=== PATIENT | male | born 1995 | race Caucasian/White ===

== ENCOUNTER 2020-02-13 13:11 | Emergency (ER) | payer OTHER ==
[2020-02-13] MEDS ORDERED: ASPIRIN 81 MG TABLET, CHEWABLE PO ONE (13:38)
[2020-02-13] MEDS ORDERED: LORAZEPAM 1 MG TABLET PO ONE (13:38)
--- NOTE | 2020-02-13 13:40 | ER Document Report ---
ED Medical Screen (RME) - General Chief Complaint: Chest Pain Stated Complaint: CHEST PAIN, LEFT ARM PAIN Time Seen by Provider: 02/13/20 13:37 Notes: HPI: 25-year-old otherwise healthy male presenting to the emergency department complaining of sudden onset of left chest pain with radiation of the discomfort in the left shoulder and down the upper left arm. Does not change with position or movement. Patient states he was drinking alcohol last night but does not do drugs. Patient states he did dip tobacco this morning. Patient was at [employer] looking for a new door when he had onset of the symptoms. States there is a history of anxiety issues in the family but he has never been diagnosed with anxiety problems. No shortness of breath. No fever. No recent illness. States he had a checkup at his PCP over a month ago but it was all normal. I have greeted and performed a rapid initial assessment of this patient. A comprehensive ED assessment and evaluation of the patient, analysis of test results and completion of the medical decision making process will be conducted by additional ED providers PHYSICAL EXAMINATION: Mildly anxious. No reproducible pain on palpation of the chest wall. Lung sounds are clear to auscultation, regular rate and rhythm. EKG normal sinus rhythm without ectopy I have greeted and performed a rapid initial assessment of this patient. A comprehensive ED assessment and evaluation of the patient, analysis of test results and completion of medical decision making process will be conducted by an additional ED providers. - Related Data Allergies/Adverse Reactions: amoxicillin Allergy (Verified 02/13/20 13:33) Penicillins Allergy (Verified 02/13/20 13:33) Past Medical History - Social History Chew tobacco use (# tins/day): Yes Frequency of alcohol use: Social Drug Abuse: None Physical Exam - Vital signs Vitals: Temp Pulse Resp BP Pulse Ox 98.7 F 92 16 173/87 H 100 02/13/20 13:15 02/13/20 13:15 02/13/20 13:15 02/13/20 13:15 02/13/20 13:15 Course - Vital Signs Vital signs: Temp Pulse Resp BP Pulse Ox 98.7 F 92 16 173/87 H 100 02/13/20 13:15 02/13/20 13:15 02/13/20 13:15 02/13/20 13:15 02/13/20 13:15
[2020-02-13 13:59] LABS: ABSOLUTE EOSINOPHILS # (AUTO) 0.4 10^3/uL (0.0-0.6); ABSOLUTE LYMPHOCYTES (AUTO) 1.2 10^3/uL (0.5-4.7); ABSOLUTE MONOCYTES (AUTO) 0.5 10^3/uL (0.1-1.4); ABSOLUTE NEUT (AUTO) 3.1 10^3/uL (1.7-8.2); BASOPHILS % (AUTO) 0.5 % (0-2); EOSINOPHILS % (AUTO) 8.3 % (0-6); HEMATOCRIT 46.9 % (37.9-51.0); HEMOGLOBIN 16.5 g/dL (13.5-17.0); LYMPHOCYTES % (AUTO) 23.5 % (13-45); MEAN CORPUSCULAR HEMOGLOBIN 31.6 pg (27.0-33.4); MEAN CORPUSCULAR HGB CONC 35.1 g/dL (32.0-36.0); MEAN CORPUSCULAR VOLUME 90 fl (80-97); MONOCYTES % (AUTO) 8.8 % (3-13); PLATELET COUNT 193 10^3/uL (150-450); RED CELL DISTRIBUTION WIDTH 12.8 % (11.5-14.0); SEGMENTED NEUTROPHILS % (AUTO) 58.9 % (42-78); TOTAL CELLS COUNTED % (AUTO) 100 %; WHITE BLOOD COUNT 5.3 10^3/uL (4.0-10.5)
--- NOTE | 2020-02-13 14:06 | RADIOLOGY REPORT (SQ) ---
EXAM DESCRIPTION: CHEST 2 VIEWS IMAGES COMPLETED DATE/TIME: 02/13/2020 1:57 pm REASON FOR STUDY: chest pain COMPARISON: None. EXAM PARAMETERS: NUMBER OF VIEWS: Two views. TECHNIQUE: PA and lateral views of the chest were obtained. RADIATION DOSE: NA LIMITATIONS: None. FINDINGS: LUNGS AND PLEURA: No consolidation, pleural effusion or pneumothorax. MEDIASTINUM AND HILAR STRUCTURES: No mediastinal or hilar contour abnormality. HEART AND VASCULAR STRUCTURES: The cardiac silhouette and pulmonary vasculature are within normal sepulveda its. BONES: No acute findings. HARDWARE: None in the chest. OTHER: No other finding. IMPRESSION: No acute cardiopulmonary process. TECHNICAL DOCUMENTATION: JOB ID: [id number] 2010 [employer]- All Rights Reserved Reading location - IP/workstation name: [email or web address]
--- NOTE | 2020-02-13 14:12 | ER Document Report ---
ED General - General Chief Complaint: Chest Pain Stated Complaint: CHEST PAIN, LEFT ARM PAIN Time Seen by Provider: 02/13/20 13:37 Mode of Arrival: Ambulatory Information source: Patient TRAVEL OUTSIDE OF THE [place] IN LAST 30 DAYS: No - HPI Onset: Other - about an hour prior to ER arrival Onset/Duration: Sudden Quality of pain: Pressure Severity: Moderate Pain Level: 3 Associated symptoms: Other - left arm numbness Exacerbated by: Denies Relieved by: Denies Similar symptoms previously: No Recently seen / treated by doctor: No Notes: 25 year old male with no known medical problems here in the ER for chest pain and left arm numbness which started about an hour prior to ER arrival. The patient was shopping at [employer] when he developed the chest pain and left arm numbness. The patient also felt his heart racing some then as well. The patient came to the ER since he had never had chest pain like this before. The patient says the chest pain has subsided a great deal since it started but he still has some. The patient has had on and off arm numbness in the past but that is usually when waking up in the morning from sleeping. The patient denies recent fevers, chills, sweats, nausea, vomiting, trouble breathing, shortness of breath. The patient says he gets fairly anxious at times but he has never had chest pain with his anxiety. The patient tells me he works out fairly regularly. - Related Data Allergies/Adverse Reactions: amoxicillin Allergy (Verified 02/13/20 13:33) Penicillins Allergy (Verified 02/13/20 13:33) Past Medical History - General Information source: Patient - Social History Smoking Status: Never Smoker Chew tobacco use (# tins/day): Yes Frequency of alcohol use: Social Drug Abuse: None Family History: Other - Grandfather had an ND at age 48 Patient has suicidal ideation: No Patient has homicidal ideation: No Review of Systems - Review of Systems Constitutional: No symptoms reported EENT: No symptoms reported Cardiovascular: Chest pain Respiratory: No symptoms reported Gastrointestinal: No symptoms reported Genitourinary: No symptoms reported Male Genitourinary: No symptoms reported Musculoskeletal: No symptoms reported Skin: No symptoms reported Hematologic/Lymphatic: No symptoms reported Neurological/Psychological: Anxiety, Other - numbness of left arm -: Yes All other systems reviewed and negative Physical Exam - Vital signs Vitals: Temp Pulse Resp BP Pulse Ox 98.7 F 92 16 173/87 H 100 02/13/20 13:15 02/13/20 13:15 02/13/20 13:15 02/13/20 13:15 02/13/20 13:15 - Notes Notes: GENERAL: Well-appearing, well-nourished and in no acute distress. HEAD: Atraumatic, normocephalic. EYES: Pupils equal round and reactive to light, extraocular movements intact, sclera anicteric, conjunctiva are normal. ENT: Nares patent, oropharynx clear without exudates. Moist mucous membranes. NECK: Normal range of motion, supple without lymphadenopathy or JVD. LUNGS: Breath sounds clear to auscultation bilaterally and equal. No wheezes rales or rhonchi. HEART: Regular rate and rhythm without murmurs, rubs or gallops. ABDOMEN: Soft, nontender, normoactive bowel sounds. No guarding, no rebound. No masses appreciated. EXTREMITIES: Normal range of motion, no pitting or edema. No clubbing or cyanosis. NEUROLOGICAL: Cranial nerves II through XII grossly intact. Normal speech, normal gait. PSYCH: Normal mood, normal affect. SKIN: Warm, Dry, normal turgor, no rashes or lesions noted. Course - Re-evaluation Re-evalutation: 02/13/20 15:11 The patient works out regularly and his labs are consistent with mild Rhabdo. Patient seems somewhat anxious so a panic attack is certainly possible. The patient is fairly low risk for ACS (his only risk factor is a family history). First Troponin was negative. Will obtain a 2nd Troponin since his chest pain started only an hour prior to ER arrival. Patient is PERC negative making PE unlikely. 02/13/20 18:54 The patient had 2 negative Trops. He is safe for outpatient follow up. Patient told to consider an outpatient cardiac stress test if he keeps having chest pains. - Vital Signs Vital signs: Temp Pulse Resp BP Pulse Ox 98.9 F 92 18 161/84 H 98 02/13/20 18:42 02/13/20 13:15 02/13/20 18:42 02/13/20 18:42 02/13/20 18:42 - Laboratory Result Diagrams: 02/13/20 13:33 04/13/20 13:33 Laboratory results interpreted by me: 02/13/20 02/13/20 13:33 13:33 Eos % (Auto) 8.3 H AST 88 H ALT 62 H Creatine Kinase 1504 H - Diagnostic Test Radiology reviewed: Image reviewed, Reports reviewed - EKG Interpretation by Me EKG shows normal: Sinus rhythm, [place], Intervals, QRS Complexes, ST-T Waves Rate: Normal Rhythm: NSR Discharge - Discharge Clinical Impression: Chest pain Qualifiers: Chest pain type: unspecified Qualified Code(s): R07.9 - Chest pain, unspecified Rhabdomyolysis Qualifiers: Rhabdomyolysis type: traumatic Encounter type: initial encounter Qualified Code(s): T79.6XXA - Traumatic ischemia of muscle, initial encounter Condition: Stable Disposition: HOME, SELF-CARE Instructions: Chest Pain of Unclear Cause ([facility]) Additional Instructions: Drink plenty of fluids in the days to come. Use Tylenol and Motrin for pain. Follow up with your primary care doctor and tell him/her you were in the ER for chest pains. You had 2 negative Troponins but your CPK was found to be elevated at 1509 (likely from working out). An elevated CPK is known as Rhabdomyolysis which is due to muscle breakdown. If you continue to have chest pains, you and your doctor may consider an outpatient cardiac stress test given your family history of heart disease.
[2020-02-13 14:15] LABS: URINE AMPHETAMINES SCREEN NEGATIVE; URINE BARBITURATES SCREEN NEGATIVE; URINE BENZODIAZEPINES SCREEN NEGATIVE; URINE COCAINE SCREEN NEGATIVE; URINE MARIJUANA (THC) SCREEN NEGATIVE; URINE METHADONE SCREEN NEGATIVE; URINE PHENCYCLIDINE SCREEN NEGATIVE
[2020-02-13 14:24] LABS: ALKALINE PHOSPHATASE 68 U/L (38-126); ANION GAP 8 (5-19); ASPARTATE AMINO TRANSFERASE 88 U/L (17-59); BILIRUBIN,TOTAL 0.6 mg/dL (0.2-1.3); BLOOD UREA NITROGEN 12 mg/dL (7-20); CALCIUM 9.8 mg/dL (8.4-10.2); CARBON DIOXIDE 30 mmol/L (22-30); CHLORIDE 101 mmol/L (98-107); CREATINE KINASE 1504 U/L (55-170); GLUCOSE 105 mg/dL (75-110); POTASSIUM 4.4 mmol/L (3.6-5.0); TOTAL PROTEIN 8.1 g/dL (6.3-8.2)
[2020-02-13] MEDS ORDERED: NORMAL SALINE 1000 ML 1,000 ML IV ONE (15:02)
--- NOTE | 2020-02-13 18:42 | EKG REPORT ---
SEVERITY:- BORDERLINE ECG - SINUS RHYTHM WITHIN NORMAL LIMITS : Confirmed by: Darrin Osuna MD 13-Feb-2020 18:41:31
[2020-02-13 18:47] VITALS: BP 161/84
== END 2020-02-13 18:49 | disposition home or self-care (01) ==
LOC: ER 13:11
DX: T79.6XXA Traumatic ischemia of muscle, initial encounter (principal); R07.9 Chest pain, unspecified; M79.602 Pain in left arm; R20.0 Anesthesia of skin; Z88.1 Allergy status to other antibiotic agents; F41.9 Anxiety disorder, unspecified; X58.XXXA Exposure to other specified factors, initial encounter
CPT/HCPCS: 93005; 99285; 96361; 96374; 36415; 82550; 85025; 80053; 84484; 80307; 71046; 93010; J7030